=== PATIENT | male | born 2005 | race Caucasian/White ===

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

== ENCOUNTER 2024-04-05 22:24 | Emergency (ER) | payer BC ==
[2024-04-05] MEDS ORDERED: Lidocaine 1% 5 ML VIAL INFILT ONE (22:25)
== END 2024-04-05 23:15 | disposition home or self-care (01) ==
LOC: FB.ED 22:24
DX: S91.311A Laceration without foreign body, right foot, initial encounter (principal); W26.0XXA Contact with knife, initial encounter
CPT/HCPCS: 12001; 99282

== ENCOUNTER 2024-11-07 16:54 | Emergency (ER) | payer BC, MEDICAID ==
[2024-11-07] MEDS: Amoxicillin/Clavulanate K 500-125 MG Tab PO ONE (17:49)
[2024-11-07] MEDS: Amoxicillin 500 MG Cap PO ONE (17:49)
== END 2024-11-07 17:55 | disposition home or self-care (01) ==
LOC: FB.ED 16:54
DX: K04.7 Periapical abscess without sinus (principal); K02.9 Dental caries, unspecified; Z79.899 Other long term (current) drug therapy; Z90.49 Acquired absence of other specified parts of digestive tract
CPT/HCPCS: 99282; A9270; 99283

== ENCOUNTER 2025-02-05 04:12 | Emergency (ER) | payer OTHER, BC, MEDICAID | END 2025-02-05 04:30 | LOC: FB.ED 04:12 | DX: F10.129 Alcohol abuse with intoxication, unspecified (principal); F17.200 Nicotine dependence, unspecified, uncomplicated; Z90.49 Acquired absence of other specified parts of digestive tract | CPT/HCPCS: 99283; 99284 ==